=== PATIENT | male | born 1980 | race Two or more races ===

== ENCOUNTER 2016-11-12 01:48 | Emergency (ER) | payer SELFPAY ==
[~2016-11-12] VITALS: Ht 172.7 cm; Wt 98.0 kg
[2016-11-12 02:03] VITALS: BP 166/90; PULSE 92; RESP 16; TEMP 98.5; O2SAT 98
[2016-11-12 02:57] VITALS: O2SAT 99
[2016-11-12 03:05] LABS: AUTOMATED NEUTROPHIL # 4.9 TH/MM3 (1.8-7.7); BASOPHIL # 0.1 TH/MM3 (0-0.2); BASOPHIL % 1.8 % (0.0-2.0); EOSINOPHIL # 0.1 TH/MM3 (0-0.4); EOSINOPHIL % 1.2 % (0.0-4.0); HEMATOCRIT 41.4 % (39.0-51.0); HEMO FLAGS DIFF FINAL; LYMPH % 22.6 % (9.0-44.0); LYMPHOCYTE # 1.7 TH/MM3 (1.0-4.8); MEAN CELL VOLUME 90.4 FL (80.0-100.0); MEAN CORPUSCULAR HGB CONC 35.4 % (32.0-36.0); MONO % 8.1 % (0.0-8.0); NEUT % 66.3 % (16.0-70.0); PLATELET COUNT 317 TH/MM3 (150-450); RED BLOOD COUNT 4.58 MIL/MM3 (4.50-5.90); RED CELL DISTRIBUTION WIDTH 12.9 % (11.6-17.2); WHITE BLOOD COUNT 7.3 TH/MM3 (4.0-11.0)
[2016-11-12 03:08] LABS: AMPHETAMINE, URINE NEG (NEG); BARBITURATES, URINE NEG (NEG); COCAINE, URINE NEG (NEG)
--- NOTE | 2016-11-12 03:10 | RADRPT ---
EXAM DATE/TIME: 11/12/2016 02:56 [place] COMPARISON: No previous studies available for comparison. INDICATIONS : Chest pain. MEDICAL HISTORY : None. SURGICAL HISTORY : None. ENCOUNTER: Initial ACUITY: 2 days PAIN SCORE: 0/10 LOCATION: Bilateral chest FINDINGS: A single view of the chest demonstrates diminished lung volumes without evidence of mass, infiltrate or effusion. The cardiomediastinal contours are unremarkable. Osseous structures are intact. CONCLUSION: No acute disease. Bart Geller MD on November 12, 2016 at 3:08 Board Certified Radiologist. This report was verified electronically.
[2016-11-12 03:20] LABS: APTT (PATIENT) 27.5 SEC (24.3-30.1); INTERNATIONAL NORMALIZED RATIO 0.9 RATIO; PROTHROMBIN TIME - PATIENT 9.9 SEC (9.8-11.6)
[2016-11-12 03:23] LABS: ALKALINE PHOSPHATASE 79 U/L (45-117); CREATINE KINASE 101 U/L (39-308); TOTAL BILIRUBIN ADULT 0.5 MG/DL (0.2-1.0)
[2016-11-12 03:31] LABS: ALT (GPT) 33 U/L (12-78); ANION GAP 8 MEQ/L (5-15); AST (GOT) 30 U/L (15-37); BACTERIA, URINE RARE /hpf; BICARBONATE 26.5 MEQ/L (21.0-32.0); BLOOD UREA NITROGEN 15 MG/DL (7-18); BLOOD, URINE SMALL (NEG); CHLORIDE 104 MEQ/L (98-107); GLOMERULAR FILTRATION RATE 84 ML/MIN (>89); GLUCOSE,URINE NEG (NEG); HYALINE CAST, URINE 1 /lpf (RARE); KETONE, URINE NEG (NEG); MAGNESIUM 1.9 MG/DL (1.5-2.5); NITRITE,URINE NEG (NEG); PH, URINE 5.5 (5.0-8.5); SODIUM (NA) 138 MEQ/L (136-145); URINE COLOR YELLOW (YELLW/STRAW)
[2016-11-12 03:36] LABS: CKMB 1.2 NG/ML (0.5-3.6)
[2016-11-12 03:41] LABS: COMMENT (UR) CULT NOT INDICATED; CULTURE IF INDICATED CULT NOT INDICATED
[2016-11-12 03:44] LABS: POTASSIUM 3.6 MEQ/L (3.5-5.1)
--- NOTE | 2016-11-12 04:10 | PD ---
HPI Chief Complaint: Abdominal Pain Time Seen by Provider: 02:34 Travel History International Travel<30 days: No Contact w/Intl Traveler<30days: No Traveled to known affect area: No History of Present Illness HPI The patient is a 36 year old male who presents to the [facility] emergency department with a history of heavy alcohol intake from Saturday through Saturday. He reports that on Saturday he was hung over and had nausea vomiting 4 and has had diarrhea 5-10 times on Saturday and Saturday with softer stools today 4. The patient reports that he has not been drinking alcohol over the last 2 days. He reports that he has had a lightheaded sensation prior to arrival. He reports that he is also had nausea this evening. The patient was brought in by ambulance services. The patient reports that he has had a midepigastric abdominal pain with acid reflux symptoms. He also reports that prior to arrival he had a tingling sensation in the right lateral thigh. He was laying on that side when he first noticed it. The symptoms have resolved since he moved off of the leg and has been moving around. He denies having any weakness of his extremities. He denies having any numbness or tingling at this time. He denies having any facial droop, difficulty with word finding ability, or vision changes. The patient denies any history of fever, cough, congestion, neck pain, chest pain, shortness of breath, abdominal pain, vomiting, diarrhea, urinary symptoms, or other neurologic symptoms. [facility] Past Medical History Narrative Medical The patient's past medical history is significant for alcohol abuse. Medical History: Denies Significant Hx Diminished Hearing: No Tetanus Vaccination: Unknown Influenza Vaccination: No Past Surgical History Narrative Surgical The patient's past surgical history is reportedly none. Surgical History: No Previous Surgery Social History Alcohol Use: Yes (6 pack of beer daily) Tobacco Use: No Substance Use: No Allergies-Medications (Allergen,Severity, Reaction): Coded Allergies: No Known Allergies (Unverified , 11/12/16) Reported Meds & Prescriptions Reported Meds & Active Scripts Active Zofran Odt (Ondansetron Odt) 4 Mg Tab 4 Mg SL Q6HR PRN Famotidine 20 Mg Tab 20 Mg PO BID Review of Systems Except as stated in HPI: all other systems reviewed are Neg General / Constitutional: No: Fever Eyes: No: Visual changes HENT: No: Headaches Cardiovascular: No: Chest Pain or Discomfort Respiratory: No: Shortness of Breath Gastrointestinal: Positive: Nausea, Vomiting, Diarrhea, Abdominal Pain (mid epigastric), Changes in Bowel Habits, Indigestion, Loss of Appetite, No: Hematemesis, Hematochezia Genitourinary: No: Dysuria Musculoskeletal: No: Pain Skin: No Rash Neurologic: Positive: Paresthesia, No: Weakness, Focal Abnormalities, Change in Mentation, Sensory Disturbance Psychiatric: Positive: Substance Abuse, No: Depression Endocrine: No: Polydipsia Hematologic/Lymphatic: No: Easy Bruising Physical Exam Narrative General: The patient is a well-developed well-nourished male in no acute distress. Head and Neck exam: Head is normocephalic atraumatic. Eyes: EOMI, pupils are equal round and reactive to light. Nose: Midline septum with pink mucous membranes Mouth: Dentition unremarkable. Moist mucus membranes. Posterior oropharynx is not erythematous. No tonsillar hypertrophy. Uvula midline. Airway patent. Neck: No palpable lymphadenopathy. No nuchal rigidity. No thyromegaly. Cardiovascular: Regular rate and rhythm without murmurs, gallops, or rubs. No pulse deficit to the extremities. Lungs: Clear to auscultation bilaterally. No wheezes, rhonchi, or rales. Abdomen: Soft, with reported discomfort on palpation of the midepigastric area with deep palpation, no other tenderness on palpation of the other quadrants of the abdomen. No guarding, rebound, or rigidity. Negative [place] sign. Normal bowel sounds are audible. No tenderness on palpation of McBurney's point. Extremities: No clubbing, cyanosis, or edema. 2+ pulses in all 4 extremities. Back: No spinous process tenderness to palpation. No costovertebral angle tenderness to palpation. Neurologic Exam: Cranial nerves 2-12 were intact on exam. Strength is 5/5 in all 4 extremities. No sensory deficits noted. No dysdiadochokinesis. Good finger to nose and Heel to luna bilaterally. Skin Exam: No rash noted. Intact skin that is warm and dry. Data Data Last Documented VS Vital Signs Date Time Temp Pulse Resp B/P Pulse Ox O2 Delivery O2 Flow Rate FiO2 11/12/16 04:25 74 16 154/78 99 Room Air 11/12/16 02:03 98.5 Orders Electrocardiogram (11/12/16 02:39) Complete Blood Count With Diff (11/12/16 02:39) Comprehensive Metabolic Panel (11/12/16 02:39) Creatine Kinase (Cpk) (11/12/16 02:39) Ckmb (Isoenzyme) Profile (11/12/16 02:39) Troponin I (11/12/16 02:39) B-Type Natriuretic Peptide (11/12/16 02:39) Prothrombin Time / Inr (Pt) (11/12/16 02:39) Act Partial Throm Time (Ptt) (11/12/16 02:39) Lipase (11/12/16 02:39) Urinalysis - C+S If Indicated (11/12/16 02:39) D-Dimer (11/12/16 02:39) Magnesium (Mg) (11/12/16 02:39) Chest, Single Ap (11/12/16 02:39) Iv Access Insert/Monitor (11/12/16 02:39) Ecg Monitoring (11/12/16 02:39) Oximetry (11/12/16 02:39) Drug Screen, Random Urine (11/12/16 02:39) Alcohol (Ethanol) (11/12/16 02:39) CKMB (11/12/16 02:35) CKMB% (11/12/16 02:35) Sodium Chlor 0.9% 1000 Ml Inj (Ns 1000 M (11/12/16 04:15) Thiamine Inj (Thiamine Inj) (11/12/16 04:15) Ondansetron Inj (Zofran Inj) (11/12/16 04:15) Pantoprazole Inj (Protonix Inj) (11/12/16 04:30) Labs Laboratory Tests Test 11/12/16 02:35 White Blood Count 7.3 TH/MM3 Red Blood Count 4.58 MIL/MM3 Hemoglobin 14.7 GM/DL Hematocrit 41.4 % Mean Corpuscular Volume 90.4 FL Mean Corpuscular Hemoglobin 32.0 PG Mean Corpuscular Hemoglobin 35.4 % Concent Red Cell Distribution Width 12.9 % Platelet Count 317 TH/MM3 Mean Platelet Volume 7.6 FL Neutrophils (%) (Auto) 66.3 % Lymphocytes (%) (Auto) 22.6 % Monocytes (%) (Auto) 8.1 % Eosinophils (%) (Auto) 1.2 % Basophils (%) (Auto) 1.8 % Neutrophils # (Auto) 4.9 TH/MM3 Lymphocytes # (Auto) 1.7 TH/MM3 Monocytes # (Auto) 0.6 TH/MM3 Eosinophils # (Auto) 0.1 TH/MM3 Basophils # (Auto) 0.1 TH/MM3 CBC Comment DIFF FINAL Differential Comment Prothrombin Time 9.9 SEC Prothromb Time International 0.9 RATIO Ratio Activated Partial 27.5 SEC Thromboplast Time D-Dimer Quantitative (PE/DVT) 0.20 MG/L FEU Urine Color YELLOW Urine Turbidity CLEAR Urine pH 5.5 Urine Specific [place] 1.021 Urine Protein TRACE mg/dL Urine Glucose (UA) NEG mg/dL Urine Ketones NEG mg/dL Urine Occult Blood SMALL Urine Nitrite NEG Urine Bilirubin NEG Urine Urobilinogen LESS THAN 2.0 MG/DL Urine Leukocyte Esterase NEG Urine RBC 3 /hpf Urine WBC LESS THAN 1 /hpf Urine Bacteria RARE /hpf Urine Hyaline Casts 1 /lpf Microscopic Urinalysis Comment CULT NOT INDICATED Sodium Level 138 MEQ/L Potassium Level 3.6 MEQ/L Chloride Level 104 MEQ/L Carbon Dioxide Level 26.5 MEQ/L Anion Gap 8 MEQ/L Blood Urea Nitrogen 15 MG/DL Creatinine 1.01 MG/DL Estimat Glomerular Filtration 84 ML/MIN Rate Random Glucose 126 MG/DL Calcium Level 8.3 MG/DL Magnesium Level 1.9 MG/DL Total Bilirubin 0.5 MG/DL Aspartate Amino Transf 30 U/L (AST/SGOT) Alanine Aminotransferase 33 U/L (ALT/SGPT) Alkaline Phosphatase 79 U/L Total Creatine Kinase 101 U/L Creatine Kinase MB 1.2 NG/ML Troponin I LESS THAN 0.02 NG/ML B-Type Natriuretic Peptide 9 PG/ML Total Protein 7.0 GM/DL Albumin 3.5 GM/DL Lipase 175 U/L Urine Opiates Screen NEG Urine Barbiturates Screen NEG Urine Amphetamines Screen NEG Urine Benzodiazepines Screen NEG Urine Cocaine Screen NEG Urine Cannabinoids Screen NEG Ethyl Alcohol Level LESS THAN 3 MG/DL MDM Medical Decision Making Medical Screen Exam Complete: Yes Emergency Medical Condition: Yes Medical Record Reviewed: Yes Interpretation(s) Last Impressions Chest X-Ray 11/12/16 0239 Signed Impressions: Service Date/Time: Saturday, November 12, 2016 02:56 - CONCLUSION: No acute disease. Bart Geller MD Differential Diagnosis Alcohol-related gastritis, versus acid reflux, versus peptic ulcer disease, versus pancreatitis, versus dehydration, versus electrolyte derangements Narrative Course During the course of the patients emergency department visit, the patients history, examination, and differential diagnosis were reviewed with the patient. The patient had IV access obtained and blood work sent for analysis. The patient's ECG reveals a sinus rhythm with a sinus arrhythmia heart rate of 69, QRS duration is 100 ms, QTC 381 ms, no acute ST segment elevation or depression, T waves inverted in V1. The patient was initially provided normal saline a 1 L IV fluid bolus, thiamine 100 mg IV, Zofran 4 mg IV, Protonix 40 mg IV. The patients laboratory studies were reviewed and remarkable for a CBC shows a white count of 7.3, hemoglobin 14.7, platelets 317 with 8.1 monocytes. CMP is remarkable for glucose of 126, calcium 8.3, CPK 101, troponin I less than 0.02, BNP is 9, lipase 175. PT PTT within normal limits, d-dimer 0.20 decreasing the likelihood of PE or DVT in this patient with no other significant risk factors. Urinalysis shows small occult blood, rare bacteria. Urine drug screen is negative, alcohol level less than 3. Radiology studies were reviewed and remarkable for a chest x-ray that shows no acute evidence of cardiopulmonary disease. The patient will be discharged home with a prescription for famotidine, and Zofran. The patient is resting comfortably and feels better, is alert and in no distress. The patients results and examination findings were discussed with the patient. The repeat examination is unremarkable and benign. The history, exam, diagnostic testing, and current condition do not suggest any significant pathology to warrant further testing, continued ED treatment, admission, or surgical evaluation at this point. The vital signs have been stable. The patient does not have uncontrollable pain, intractable vomiting, or other significant symptoms. The patient's condition is stable and appropriate for discharge. The patient will pursue further outpatient evaluation with a primary care physician or other designated or consulting physician as indicated in the discharge instructions. The patient expressed understanding and was agreeable with this plan. Diagnosis Primary Impression: Abdominal pain Qualified Code: R10.13 - Epigastric pain Additional Impression: Nausea, vomiting, and diarrhea Referrals: Primary Care Physician 2 days Patient Instructions: Abdominal Pain (ED), Acute Diarrhea (ED), Acute Nausea and Vomiting (ED), General Instructions Additional Instructions: The patient is instructed regarding the importance of decreasing his alcohol intake in the future. Med/Other Pt SpecificInfo: Prescription(s) given Scripts Ondansetron Odt (Zofran Odt)4 Mg Tab4 Mg SL Q6HR PRN (Nausea/Vomiting) #7 TAB Ref 0 Prov:Valery Herzog MD 11/12/16 Famotidine 20 Mg Tab20 Mg PO BID #28 TAB Ref 0 Prov:Valery Herzog MD 11/12/16 Disposition: 01 DISCHARGE HOME Condition: Stable Valery Herzog MD Nov 12, 2016 04:10
[2016-11-12] MEDS ORDERED: THIAMINE INJ 100 MG in SODIUM CHLORIDE 0.9% INJ 100 ML IV ONE (04:15)
[2016-11-12] MEDS ORDERED: SODIUM CHLOR 0.9% 1000 ML INJ 1,000 ML IV ONE (04:15)
[2016-11-12] MEDS ORDERED: ONDANSETRON HCL 4 MG/2 ML VIAL IV ONE (04:15)
[2016-11-12 04:25] VITALS: BP 154/78; PULSE 74; RESP 16; O2SAT 99
[2016-11-12] MEDS ORDERED: PANTOPRAZOLE SODIUM 40 MG VIAL IV PUSH ONE (04:30)
[2016-11-12] MEDS ORDERED: FAMO20TA2 PO (06:55)
[2016-11-12] MEDS ORDERED: ZOFR4TAB3 SL (06:55)
--- NOTE | 2016-11-12 14:15 | EKG ---
Date Performed: 11/12/2016 Time Performed: 03:17:12 PTAGE: 36 years EKG: Sinus rhythm WITH SINUS ARRHYTHMIA NORMAL ECG NO PREVIOUS TRACING DOCTOR: Conrado Handy Interpretating Date/Time 11/12/2016 14:12:24
== END 2016-11-12 07:06 | disposition home or self-care (01) ==
LOC: NEPC 01:48
DX: R10.13 Epigastric pain (principal); R19.7 Diarrhea, unspecified; R11.2 Nausea with vomiting, unspecified
CPT/HCPCS: 71010; 80053; 80307; 81001; 82550; 82552; 83690; 83735; 83880; 84484; 85025; 85379; 85610; 85730; 93005; 96374; 96375; 99285; C9113; J2405; J3411; J7030